=== PATIENT | male | born 1955 | race Caucasian/White ===

== ENCOUNTER 2021-03-24 10:29 | Emergency (ER) | payer OTHER ==
[~2021-03-24] VITALS: Ht 177.8 cm; Wt 78.8 kg
[2021-03-24] MEDS ORDERED: SODIUM CHLORIDE 0.9% 100 ML ONE (10:42)
[2021-03-24] MEDS ORDERED: IOHEXOL 350 MG/ML 75 ML VIAL ONE (10:42)
[2021-03-24] MEDS ORDERED: BACL10TA PO (10:59)
[2021-03-24] MEDS ORDERED: QUET50TA PO (10:59)
[2021-03-24] MEDS ORDERED: AMLO-257 PO (10:59)
[2021-03-24] MEDS ORDERED: ESCI-8 PO (10:59)
[2021-03-24] MEDS ORDERED: CLOP75TA60 PO (10:59)
[2021-03-24] MEDS ORDERED: ATOR10TA84 PO (10:59)
[2021-03-24 11:03] LABS: BASOPHILS % (AUTO) 1.2 % (0.0-2.0); EOSINOPHILS % (AUTO) 1.9 % (1.0-6.0); HEMOGLOBIN 11.9 g/dL (13.5-17.5); LYMPHOCYTES # (AUTO) 1.8 K/uL (1.0-4.8); LYMPHOCYTES % (AUTO) 20.5 % (22.0-44.0); MEAN CORPUSCULAR HEMOGLOBIN 28.9 pg (26.0-34.0); MEAN CORPUSCULAR HGB CONC 32.2 G/dL (31.0-37.0); MEAN CORPUSCULAR VOLUME 90 fL (80-100); MONOCYTES # (AUTO) 0.7 K/uL (0.1-1.0); MONOCYTES % (AUTO) 7.8 % (2.0-9.0); NEUTROPHILS # (AUTO) 6.1 K/uL (1.8-7.7); NEUTROPHILS % (AUTO) 68.6 % (40.0-70.0); PLATELET COUNT (AUTO) 312 K/uL (150-450); RED BLOOD CELL COUNT(AUTO) 4.12 MIL/uL (4.50-5.90); RED CELL DISTRIBUTION WIDTH 14.5 % (11.5-14.5)
[2021-03-24] MEDS ORDERED: AMLO2.5T96 PO (11:07)
[2021-03-24] MEDS ORDERED: ATOR40TA28 PO (11:07)
[2021-03-24 11:17] LABS: PROTHROMBIN TIME 10.5 SEC (9.4-11.6)
[2021-03-24 11:25] LABS: CALCIUM, TOTAL 8.6 mg/dL (8.8-10.5); CREATININE 1.46 mg/dL (0.60-1.30); POTASSIUM 4.6 mmol/L (3.5-5.1)
[2021-03-24 11:32] LABS: COVID AG,FIA SOURCE NASOPHARYNGEAL
[2021-03-24 11:37] LABS: ALBUMIN 3.4 g/dL (3.4-5.0); BILIRUBIN,TOTAL 0.6 mg/dL (0.1-1.0); TOTAL PROTEIN, SERUM 7.1 g/dL (6.4-8.2)
[2021-03-24] MEDS ORDERED: ASPIRIN 325 MG TABLET PO ONE (12:15)
[2021-03-24 16:33] LABS: APPEARANCE,URINE CLEAR (CLEAR); BILIRUBIN,URINE NEGATIVE (NEGATIVE); GLUCOSE, URINE (UA) NEGATIVE (NEGATIVE); KETONES,URINE NEGATIVE (NEGATIVE); LEUKOCYTE ESTERASE ,URINE NEGATIVE (NEGATIVE); NITRATE,URINE NEGATIVE (NEGATIVE); OCCULT BLOOD,URINE NEGATIVE (NEGATIVE); PH,URINE 5.5 (5.0-8.0); PROTEIN,URINE POS 1+ (NEGATIVE); UROBILINOGEN,URINE 0.2 mg/dL (<=1.0)
[2021-03-24 16:40] LABS: AMPHET/METH SCREEN,URINE NEGATIVE (NEGATIVE); BARBITURATE SCREEN, URINE NEGATIVE (NEGATIVE); BENZODIAZEPINES SCREEN,URINE NEGATIVE (NEGATIVE); CANNABINOID SCREEN,URINE POSITIVE (NEGATIVE); COCAINE SCREEN,URINE NEGATIVE (NEGATIVE); METHADONE SCREEN, URINE NEGATIVE (NEGATIVE); OPIATE SCREEN,URINE NEGATIVE (NEGATIVE)
[2021-03-24 16:42] LABS: PHENCYCLIDINE SCREEN,URINE NEGATIVE (NEGATIVE)
[2021-03-24 17:29] LABS: BACTERIA,URINE None Seen /HPF (None Seen); RBC,URINE None Seen /HPF (0-2); WBC,URINE None Seen /HPF (0-5)
[2021-03-24 18:28] VITALS: BP 120/70
== END 2021-03-24 18:31 | disposition short-term general hospital (02) ==
LOC: EMS 10:29
DX: I63.9 Cerebral infarction, unspecified (principal); N17.9 Acute kidney failure, unspecified; R42 Dizziness and giddiness; I11.9 Hypertensive heart disease without heart failure; E78.00 Pure hypercholesterolemia, unspecified; Z20.822 Contact with and (suspected) exposure to COVID-19; Z87.891 Personal history of nicotine dependence; Z88.0 Allergy status to penicillin
CPT/HCPCS: 36415; 70450; 70496; 71045; 80053; 80307; 81001; 84484; 85025; 85610; 85730; 87426; 93005; 99291; J7050; Q9967

== ENCOUNTER 2024-01-25 10:47 | Emergency (ER) | payer OTHER ==
[~2024-01-25] VITALS: Ht 170.2 cm; Wt 68.8 kg
[~2024-01-25 10:47] MED LIST: AMLO2.5T96 PO; ATOR40TA28 PO; BACL10TA PO; CLOP75TA60 PO; ESCI-8 PO; QUET50TA PO
[2024-01-25 10:54] VITALS: TEMP 97.5
[2024-01-25] MEDS ORDERED: SODIUM CHLORIDE 0.9% 1,000 ML IV ONE (11:00)
[2024-01-25 11:36] LABS: BASOPHILS % (AUTO) 0.8 % (0.0-2.0); HEMATOCRIT 38.2 % (41-53); HEMOGLOBIN 12.1 g/dL (13.5-17.5); LYMPHOCYTES % (AUTO) 19.3 % (22.0-44.0); MEAN CORPUSCULAR HEMOGLOBIN 28.7 pg (26.0-34.0); MEAN CORPUSCULAR HGB CONC 31.8 G/dL (31.0-37.0); MEAN CORPUSCULAR VOLUME 90 fL (80-100); MONOCYTES # (AUTO) 0.4 K/uL (0.1-1.0); MONOCYTES % (AUTO) 7.2 % (2.0-9.0); NEUTROPHILS # (AUTO) 3.8 K/uL (1.8-7.7); NEUTROPHILS % (AUTO) 70.7 % (40.0-70.0); PLATELET COUNT (AUTO) 248 K/uL (150-450); RED BLOOD CELL COUNT(AUTO) 4.22 MIL/uL (4.50-5.90); RED CELL DISTRIBUTION WIDTH 14.3 % (11.5-14.5); WHITE BLOOD COUNT (AUTO) 5.3 K/uL (4.5-11.0)
[2024-01-25 11:50] LABS: CALCIUM, TOTAL 8.9 mg/dL (8.8-10.5); CREATININE 1.74 mg/dL (0.60-1.30); POTASSIUM 4.3 mmol/L (3.5-5.1)
[2024-01-25 11:53] LABS: PROTHROMBIN TIME 10.8 SEC (9.4-11.6)
[2024-01-25 11:57] LABS: TROPONIN I-HIGH SENSITIVITY 6 ng/L (<76)
[2024-01-25 12:03] LABS: LACTIC ACID 1.5 mmol/L (0.4-2.0)
[2024-01-25] MEDS: SODIUM CHLORIDE 0.9% 1,000 ML IV ONE (12:11)
[2024-01-25] MEDS ORDERED: INSU100V51 SQ (12:13)
[2024-01-25] MEDS ORDERED: QUET25TA36 PO (12:13)
[2024-01-25] MEDS ORDERED: TAMS0.4C94 PO (12:13)
[2024-01-25] MEDS ORDERED: METF-1211 PO (12:13)
[2024-01-25] MEDS ORDERED: LOSA-381 PO (12:13)
[2024-01-25 12:15] LABS: ALBUMIN 3.1 g/dL (3.4-5.0); BILIRUBIN,TOTAL 0.7 mg/dL (0.1-1.0)
[2024-01-25 12:16] LABS: PHOSPHORUS 3.9 mg/dL (2.5-4.9)
[2024-01-25 13:08] LABS: INFLUENZA A-RTPCR,COMBO NEGATIVE (NEGATIVE); INFLUENZA B-RTPCR,COMBO NEGATIVE (NEGATIVE); RESPIRATORY SYNCYTIAL VRS-PCR NEGATIVE (NEGATIVE)
[2024-01-25 13:16] LABS: SARS COVID19 RTPCR, COMBO POSITIVE (NEGATIVE)
[2024-01-25 14:25] VITALS: BP 108/63; PULSE 61; RESP 16
== END 2024-01-25 14:26 | disposition short-term general hospital (02) ==
LOC: EMS 10:47
DX: U07.1 COVID-19 (principal); R53.1 Weakness; I95.9 Hypotension, unspecified; F17.200 Nicotine dependence, unspecified, uncomplicated; E11.9 Type 2 diabetes mellitus without complications; I10 Essential (primary) hypertension; R41.82 Altered mental status, unspecified; Z88.0 Allergy status to penicillin; Z79.899 Other long term (current) drug therapy
CPT/HCPCS: 99285; 96360; 0241U; 70450; 71045; 80053; 82550; 83605; 83735; 83880; 84100; 84484; 85025; 85610; 85730; 82962; 93005; J7030; 36415-L1; 36415-TC